=== PATIENT | male | born 1965 | race African-American/Black ===

== ENCOUNTER 2024-08-04 08:43 | Outpatient (CLI) | payer MEDICARE, BC | END 2024-08-04 08:44 | disposition home or self-care (01) | LOC: CSHSLEEP 08:43 | PROVIDERS: ATTEND Family Medicine | DX: G47.10 Hypersomnia, unspecified (principal); G47.9 Sleep disorder, unspecified; R06.81 Apnea, not elsewhere classified; R53.83 Other fatigue; E66.9 Obesity, unspecified; Z68.33 Body mass index [BMI] 33.0-33.9, adult; R06.83 Snoring; G47.00 Insomnia, unspecified; R35.1 Nocturia; I13.11 Hypertensive heart and chronic kidney disease without heart failure, with stage 5 chronic kidney disease, or end stage renal disease; E11.22 Type 2 diabetes mellitus with diabetic chronic kidney disease; N18.6 End stage renal disease; G47.33 Obstructive sleep apnea (adult) (pediatric) | CPT/HCPCS: 95811 ==